=== PATIENT | female | born 1945 | race African-American/Black ===

== ENCOUNTER 2020-11-06 08:02 | Emergency (ER) | payer OTHER ==
[~2020-11-06] VITALS: Ht 157.5 cm; Wt 91.5 kg
--- NOTE | 2020-11-06 08:15 | NUR ---
PT PRESENTS TO ED WITH C/O BODY ACHES AND WEAKNESS IN THE LEFT HIP/LOWER EXTREMITY X 2 WEEKS. PT DENIES TRAUMA OR FALLS. PT A&O, RESPS EVEN AND UNLABORED, VSS, NADN. CALL LIGHT IN REACH.
[2020-11-06] MEDS ORDERED: METHOCARBAMOL 750 MG TABLET PO ONE (08:30)
--- NOTE | 2020-11-06 08:32 | NUR ---
PT TO XRAY
[2020-11-06] MEDS ORDERED: METHOCARBAMOL 750 MG TABLET ONE (08:37)
--- NOTE | 2020-11-06 10:16 | NUR ---
PT RESTING IN BED, MONITORS ATTACHED, VSS. PT A&O, RESPS EVEN AND UNLABORED, NADN. CALL LIGHT IN REACH, GRANDDAUGHTER AT BEDSIDE.
--- NOTE | 2020-11-06 11:53 | NUR ---
PT PAIN HAS IMPROVED SLIGHTLY, DECLINES ADDITIONAL PAIN MEDICATION. ATTEMPTED TO WALK WITH PERSONAL WALKER, VERY LIMITED MOBILITY, ERPA NOTIFIED. PT DECLINES ADMISSION, FAMILY STATES THEY ARE ABLE TO FULLY ASSIST WITH ADLS AND MOBILITY. PT A&O, RESPS EVEN AND UNLABORED, NO COMPLAINT AT THIS TIME. PT TO BE DISCHARGED.
[2020-11-06 12:12] VITALS: BP 137/65
--- NOTE | 2020-11-06 12:13 | NUR ---
DISCHARGE INSTRUCTIONS REVIEWED, PT VERBALIZED UNDERSTANDING. PT ACCOMPANIED TO DISCHARGE DESK BY FAMILY.
== END 2020-11-06 13:00 ==
LOC: ED 09:27
DX: M51.36 Other intervertebral disc degeneration, lumbar region (principal); M43.16 Spondylolisthesis, lumbar region; M54.42 Lumbago with sciatica, left side; I10 Essential (primary) hypertension; Z87.891 Personal history of nicotine dependence
CPT/HCPCS: 72110; 99283